=== PATIENT | female | born 2000 | race African-American/Black ===

== ENCOUNTER 2025-05-15 05:12 | Emergency (ER) | payer OTHER ==
[~2025-05-15] VITALS: Ht 154.9 cm; Wt 69.0 kg
--- NOTE | 2025-05-15 06:14 | DVH ---
MEDICAL RECORDS NUMBER: [id number] PROCEDURE: XY CHEST XRAY 1 VIEW DATE: 05/15/2025 05:44 AM HISTORY: Chest pain Views:1 COMPARISON: None FINDINGS/IMPRESSION: Lungs: The lungs are clear. Mediastinum: Mediastinal structures appear unremarkable... Skeletal: The skeletal structures appear unremarkable.
--- NOTE | 2025-05-15 06:19 | ED.PDOC ---
SOB-HPI HPI Comments This is a 24 year old female presenting to the ED with chief complaint of chest pain. Patient reports that she had been experiencing right sided chest pain for the past month, however, it has been exacerbated for the past 3 days since developing a cold with associated symptoms of cough and chills. Patient relays that her pain is now across her chest, radiating to the back, and worsened with coughing and deep inspirations. Patient denies any SOB, fever, N/V, dizziness, headache, or hemoptysis. Chief Complaint: Chest Pain Time Seen by MD: 06:18 Reviewed notes: Nurses Notes, Medications, Allergies Information Source: Patient Mode of Arrival: Ambulatory Severity: Moderate Timing: Days Duration: Since onset Context: At Rest PE Risk Factors: None History of: None Prehospital treatment: None Modifying Factors: Nothing Associated Signs and Symptoms: Cough, Chest Pain Quality: Sharp Radiation: Back Location: Substernal If cough with SOB: Non-Productive Past Medical History PAST MEDICAL HISTORY: Denies Surgical History: Denies all surgeries NURSING MANAGER History: No Pertinent NURSING MANAGER History Family History Family History: Reviewed,noncontributory to illness Social History Smoker: Non-Smoker Alcohol: Denies ETOH Use, Occasionally Drugs: Marijuana Lives In: Home Constitutional: reports: chills; denies: diaphoresis, fatigue, fever, malaise, sweats, weakness, others EENTM: denies: blurred vision, double vision, ear bleeding, ear discharge, ear drainage, ear pain, ear ringing, eye pain, eye redness, hearing loss, mouth pain, mouth swelling, nasal discharge, nose bleeding, nose congestion, nose josé miguel n, photophobia, tearing, throat pain, throat swelling, voice changes, others Respiratory: reports: cough; denies: hemoptysis, orthopnea, SOB at rest, shortness of breath, SOB with excertion, stridor, wheezing, others Cardiovascular: reports: chest pain; denies: dizzy spells, diaphoresis, Dyspnea on exertion, edema, irregular heart beat, left arm pain, lightheadedness, palpitations, PND, syncope, others Gastrointestinal: denies: abdomen distended, abdominal pain, blood streaked bowels, constipated, diarrhea, dysphagia, difficulty swallowing, hematemesis, melena, nausea, poor appetite, poor fluid intake, rectal bleeding, rectal pain, vomiting, others Genitourinary: denies: abnormal vagina bleeding, burning, dyspareunia, dysuria, flank pain, frequency, hematuria, incontinence, pain, , vagina discharge, urgency, others Neurological: denies: dizziness, fainting, headache, left sided numbness, left sided weakness, numbness, paresthesia, pre-existing deficit, right sided numbness, right sided weakness, seizure, speech problems, tingling, tremors, weakness, others Musculoskeletal: denies: back pain, gout, joint pain, joint swelling, muscle pain, muscle stiffness, neck pain, others Integumetry: denies: bruises, change in color, change in hair/nails, dryness, laceration, lesions, lumps, rash, wounds, others Allergic/Immunocompromised: denies: Difficulty Healing, Frequent Infections, Hives, Itching, others Hematologic/Lymphatic: denies: anemia, blood clots, easy bleeding, easy bruising, swollen glands, others Endocrine: denies: excessive hunger, excessive sweating, excessive thirst, excessive urination, flushing, intolerance to cold, intolerance to heat, unexplained weight gain, unexplained weight loss, others Psychiatric: denies: anxiety, bipolar disorder, depression, hopeless, panic disorder, schizophrenia, sleepless, suicidal, others All Other Systems: Reviewed and Negative Physical Exam General Appearance: No Apparent Distress HEENT: Normal ENT Inspection, Pharynx Normal, TMs Normal Neck: Full Range of Motion, Non-Tender, Normal, Normal Inspection Respiratory: Chest Non-Tender, Lungs Clear, No Accessory Muscle Use, No Respiratory Distress, Normal Breath Sounds Cardiovascular: No Edema, No JVD, No Murmur, No Gallop, Normal Peripheral Pulses, Regular Rate/Rhythm Breast Exam: Deferred Gastrointestinal: No Organomegaly, Non Tender, No Pulsatile Mass, Normal Bowel Sounds, Soft Genitalia: Deferred Pelvic: Deferred Rectal: Deferred Extremities: No calf tenderness, Normal capillary refill, Normal inspection, Normal range of motion, Non-tender, No pedal edema Musculoskeletal : Apperance: Normal Neurologic: Alert, advertising analyst II-XII nml as Tested, No Motor Deficits, Normal Affect, Normal Mood, No Sensory Deficits Cerebellar Function: Normal Reflexes: Normal Skin: Dry, Normal Color, Warm Lymphatic: No Adenopathy Was a procedure done? Was a procedure done?: No Differential Dx Differential Diagnosis: Asthma, Bronchitis, Pneumonia X-Ray, Labs, Meds, VS Vital Signs Date Time Temp Pulse Resp B/P (MAP) Pulse Ox O2 Delivery O2 Flow Rate FiO2 05/15/25 05:28 68 05/15/25 05:14 98.0 84 18 134/107 97 98.0 Lab Test 05/15/25 06:17 Range/Units White Blood Count 4.3 L 4.4-10.8 10^3/uL Red Blood Count 4.97 4.0-5.20 10^6/uL Hemoglobin 15.0 12.2-16.2 g/dL Hematocrit 44.1 36.0-46.0 % Mean Corpuscular Volume 88.6 80.0-100.0 fL Mean Corpuscular Hemoglobin 30.2 28.0-32.0 pg Mean Corpuscular Hemoglobin Concent 34.1 32.0-36.0 g/dL Red Cell Distribution Width 14.1 11.8-14.3 % Platelet Count 320 140-450 10^3/uL Mean Platelet Volume 7.3 6.9-10.8 fL Neutrophils (%) (Auto) 47.4 37.0-80.0 % Lymphocytes (%) (Auto) 37.2 10.0-50.0 % Monocytes (%) (Auto) 12.5 H 0.0-12.0 % Eosinophils (%) (Auto) 2.6 0.0-7.0 % Basophils (%) (Auto) 0.3 0.0-2.0 % Neutrophils # (Auto) 2.0 1.6-8.6 10 ^3/uL Lymphocytes # (Auto) 1.6 0.4-5.4 10 ^3/uL Monocytes # (Auto) 0.5 0-1.3 10 ^3/uL Eosinophils # (Auto) 0.1 0-0.8 10 ^3/uL Basophils # (Auto) 0 0-0.2 10 ^3/uL Nucleated Red Blood Cells 0.3 % Sodium Level Pending Potassium Level Pending Chloride Level Pending Carbon Dioxide Level Pending Anion Gap Pending Blood Urea Nitrogen Pending Creatinine Pending Glomerular Filtration Rate Calc Pending BUN/Creatinine Ratio Pending Serum Glucose Pending Calcium Level Pending Troponin I High Sensitivity Pending Chest XR indicates: Lungs: The lungs are clear. Mediastinum: Mediastinal structures appear unremarkable. Skeletal: The skeletal structures appear unremarkable. Gallbladder US indicates: 1. Unremarkable gallbladder ultrasound The patient's CBC is within normal limits. At this time, the patient is being discharged with a diagnosis of nonspecific chest pain The patient will return to the emergency department's the condition worsens. Images Reviewed?: Images reviewed and evaluated by me Time of 1ST Reevaluation: 07:25 Reevaluation 1ST: Improved Patient Education/Counseling: Diagnosis, Treatment, Prognosis, Need For Follow Up Family Education/Counseling: No Family Present SEPSIS Sepsis Screen Date sepsis recognized/suspect: May 15, 2025 Time Sepsis recognized/suspect: 518 Recent Procedure: No On Antibiotic Therapy: No Respiratory Rate >20: No Heart Rate >90: No Temp<36 C (96.8 F) or >38.3 C: No SBP <90 or MAP <65 mmHG: No New Acute Mental Status Change: No Is the patient on CPAP, BIPAP,: No Physician Orders Basic Metabolic Panel (05/15/25 05:23) Troponin-I Hs (05/15/25 05:23) Electrocardigram (05/15/25 05:23) Notify Md If Abnormal Vs (05/15/25 05:23) Vital Signs Q1HR (05/15/25 05:23) Chest Xray 1 View (05/15/25 05:23) Troponin-I Hs (05/15/25 06:23) Troponin-I Hs (05/15/25 08:23) Electrocardigram (05/15/25 06:23) Electrocardigram (05/15/25 08:23) Gallbladder (05/15/25 06:13) Vital Signs Date Time Temp Pulse Resp B/P (MAP) Pulse Ox O2 Delivery O2 Flow Rate FiO2 05/15/25 05:28 68 05/15/25 05:14 98.0 84 18 134/107 97 98.0 Laboratory Tests Test 05/15/25 06:17 White Blood Count 4.3 10^3/uL (4.4-10.8) L Departure 1 Departure Time of Disposition: 07:25 Impression: Primary Impression: Nonspecific chest pain Disposition: 01 HOME / SELF CARE / HOMELESS Condition: Fair Discharged With: Self Critical Care Note Critical Care Time?: No Stability Stability form required: No Heart Score Heart Score: Heart Score Response (Comments) Value History Slightly Suspicious 0 EKG Normal 0 Age <45 0 Risk Factors No known risk factors 0 Troponin N/A 0 Total 0 I personally scribed for ARNALDO FOOTE MD ([email or web address]) on 05/15/25 at 06:19. Electronically submitted by Servando Greene ([email or web address]). I personally scribed for ARNALDO FOOTE MD ([email or web address]) on 05/15/25 at 06:47. Electronically submitted by Servando Greene ([email or web address]). I personally scribed for ARNALDO FOOTE MD ([email or web address]) on 05/15/25 at 06:48. Electronically submitted by Servando Greene ([email or web address]). ARNALDO FOOTE MD May 15, 2025 06:19
--- NOTE | 2025-05-15 06:44 | DVH ---
MEDICAL RECORDS NUMBER: [id number] PROCEDURE: Gallbladder Ultrasound. Date: 05/15/2025 06:20 AM HISTORY: pain COMPARISON: None FINDINGS: Multiple combs-scale and color flow images of the right upper quadrant were obtained. Aorta and IVC: The aorta and IVC are patent and are normal in size. Pancreas: The pancreas is not well evaluated given the overlying bowel gas. Liver: The liver appears slightly prominent with a length of 17 cm. No focal lesions are seen.. Gallbladder: The gallbladder appears unremarkable. No stones are seen. No wall thickening is seen. The patient is not tender over the gallbladder. Bile ducts:The extrahepatic common bile duct measures 4 mm. Right kidney: The right kidney is normal in size. There is normal echogenicity of the right kidney and there is no evidence of hydronephrosis.Cortical thickness is well preserved. IMPRESSION: 1. Unremarkable gallbladder ultrasound
[2025-05-15 07:17] LABS: Hematocrit 44.1 % (36.0-46.0); Hemoglobin 15.0 g/dL (12.2-16.2); Mean Corpuscular Hemoglobin 30.2 pg (28.0-32.0); Mean Corpuscular Volume 88.6 fL (80.0-100.0); Nucleated Red Blood Cells % 0.3 %
[2025-05-15 07:25] LABS: Potassium 4.0 mmol/L (3.5-5.1); Sodium 141 mmol/L (136-145)
[2025-05-15 07:26] LABS: Anion Gap 11 (5-15); Carbon Dioxide 23 mmol/L (20-31)
[2025-05-15 07:27] LABS: Calcium 9.7 mg/dL (8.7-10.4); Chloride 107 mmol/L (98-107)
[2025-05-15 07:30] VITALS: BP 129/78; PULSE 84; RESP 19; TEMP 98.1; O2SAT 99
[2025-05-15 07:31] LABS: BUN/Creatinine Ratio 9.3 (10.0-20.0); Glucose 97 mg/dL (74-106)
[2025-05-15 07:35] LABS: Blood Urea Nitrogen 7 mg/dL (9-23)
--- NOTE | 2025-05-19 07:49 | ECG ---
[facility] Test Date: 2025-05-15 Test Time: 05:28:27 Pat Name: RON RODRÍGUEZ Department: ED Room: Gender: F Parking Patroller: DOROTHY : 2000 Requested By: RAYNA KAM Order Number: [id number] Reading MD: Alcon Maldonado Measurements Intervals [place] Rate: 68 P: 38 MS: 148 QRS: 44 QRSD: 76 T: 3 QT: 403 QTc: 429 Interpretive Statements Sinus rhythm Probable left atrial enlargement Electronically Signed On 05-20-2025 17:37:39 PST by Alcon Maldonado Please click the below link to view image of tracing.
== END 2025-05-15 08:08 | disposition home or self-care (01) ==
LOC: ER 05:12
DX: R07.89 Other chest pain (principal); F12.90 Cannabis use, unspecified, uncomplicated
CPT/HCPCS: 36415; 71045; 76705; 80048; 84484; 85025; 93005